=== PATIENT | female | born 1965 | race Caucasian/White ===

== ENCOUNTER → 2019-12-12 | Outpatient (CLI) | payer OTHER ==
--- NOTE | 2019-12-15 14:49 | SLEEPHOME ---
DATE OF STUDY: 12/12/2019 ORDERED BY: Melissa Artis NP Diagnostic home sleep testing was performed due to concern for the obstructive sleep apnea syndrome in this patient with a history of snoring and excessive daytime somnolence. For testing a nocturnal T3 respiratory monitoring device was used. Continuous record was made of pulse, oxygen saturation, airflow, chest and abdominal strain, and body position. 9 hours and 59 minutes of data were reviewed. There were 8 hours and 19 minutes marked as time in bed. During the interval marked time in bed there were 43 respiratory events identified of 10 seconds in duration or greater for a respiratory event index of 5.2. The events were primarily obstructive. Baseline pulse rate 66 beats per minute, pulse rate ranged 46-190. Baseline saturation 92% saturations fell to 84%. Testing was performed in both the supine and nonsupine positions. IMPRESSION: Abnormal home sleep testing with repetitive respiratory events and oxygen desaturations to 84% with a respiratory event index of 5.2 is consistent with the obstructive sleep apnea syndrome. RECOMMENDATION: The patient should be encouraged to undergo formal sleep evaluation.
== END ==
LOC: M SLEEP HO 13:11
PROVIDERS: ATTEND Nurse Practitioner Adult Health
DX: G47.30 Sleep apnea, unspecified (principal)

== ENCOUNTER → 2020-08-27 | Outpatient (CLI) | payer SELFPAY | LOC: M LABSMTC 17:16 | PROVIDERS: ATTEND Pediatrics | DX: Z20.828 Contact with and (suspected) exposure to other viral communicable diseases (principal) ==

== ENCOUNTER 2024-03-07 08:45 | Day surgery (SDC) | payer OTHER ==
[~2024-03-07] VITALS: Ht 172.7 cm; Wt 108.3 kg
[~2024-03-07 08:45] MED LIST: CALC600T60 PO; MAGN200T PO; MELO15TA28 PO; METH-1164 PO; OMEP40CA4 PO; SERT50TA29 PO; SYNT50TA PO; VITA100093 PO
[2024-03-07] MEDS: NS 1,000 ML IV ONE (09:06)
[2024-03-07] MEDS ORDERED: propofoL 200 MG/20 ML VIAL As Ordered ONE (09:21)
[2024-03-07 09:53] VITALS: TEMP 98.1
[2024-03-07 10:13] VITALS: BP 162/62; O2SAT 79
== END 2024-03-07 10:21 | disposition home or self-care (01) ==
LOC: M SDC 08:45
PROVIDERS: ATTEND Internal Medicine Gastroenterology
DX: Z12.11 Encounter for screening for malignant neoplasm of colon (principal); K64.8 Other hemorrhoids; K44.9 Diaphragmatic hernia without obstruction or gangrene; K31.89 Other diseases of stomach and duodenum; K22.89 Other specified disease of esophagus; R12 Heartburn; G47.30 Sleep apnea, unspecified; Z99.89 Dependence on other enabling machines and devices; E03.9 Hypothyroidism, unspecified; Z79.1 Long term (current) use of non-steroidal anti-inflammatories (NSAID); Z79.890 Hormone replacement therapy; Z79.891 Long term (current) use of opiate analgesic; Z79.899 Other long term (current) drug therapy

== ENCOUNTER → 2024-03-18 | Outpatient (CLI) | payer OTHER | LOC: M RAD 08:05 | PROVIDERS: ATTEND Nurse Practitioner Adult Health | DX: R05.9 Cough, unspecified (principal) ==

== ENCOUNTER → 2024-03-31 | Outpatient (CLI) | payer OTHER ==
[~2024-03-31] MED LIST changes: +METHACHOLINE KIT (6 VIAL.NEB PREMIX) INH ONE
== END ==
LOC: M CARPUL 12:26
PROVIDERS: ATTEND Nurse Practitioner Adult Health
DX: R06.02 Shortness of breath (principal)
CPT/HCPCS: 94070; J7674